=== PATIENT | female | born 1995 | race African-American/Black ===

== ENCOUNTER 2024-01-20 12:18 | Emergency (ER) | payer OTHER ==
[~2024-01-20] VITALS: Ht 170.2 cm; Wt 105.0 kg
[2024-01-20] MEDS: CEPHALEXIN MONOHYDRATE 500 MG CAPSULE PO ONE (13:31)
[2024-01-20] MEDS: PERTUSS(ACELL),DIPH,TET/PF 0.5 ML SYRINGE [ADULT] IM. ONE (13:33)
[2024-01-20] MEDS ORDERED: IBUP-1492 PO (13:49)
[2024-01-20] MEDS ORDERED: CEPH-558 PO (13:49)
[2024-01-20 14:13] VITALS: BP 128/74; PULSE 78; RESP 14; TEMP 98.6
[2024-01-21] MEDS ORDERED: CEPH-558 PO (20:51)
[2024-01-21] MEDS ORDERED: IBUP-1492 PO (20:51)
== END 2024-01-20 14:27 | disposition home or self-care (01) ==
LOC: EMS 12:26 → EDBD 12:26 → EMS 14:27
DX: S01.91XA Laceration without foreign body of unspecified part of head, initial encounter (principal); F12.90 Cannabis use, unspecified, uncomplicated; Z98.890 Other specified postprocedural states; V89.2XXA Person injured in unspecified motor-vehicle accident, traffic, initial encounter; Y93.89 Activity, other specified; Y92.89 Other specified places as the place of occurrence of the external cause; Y99.8 Other external cause status
CPT/HCPCS: 12002; 70450; 90471; 90715; 99285

== ENCOUNTER → 2024-01-26 | Emergency (ER) | payer OTHER ==
[~2024-01-26] VITALS: Ht 167.6 cm; Wt 86.4 kg
[~2024-01-26] MED LIST: CEPH-558 PO; IBUP-1492 PO
[2024-01-26 17:15] VITALS: BP 132/84; PULSE 98; RESP 18; TEMP 97.9
== END | disposition still patient (30) ==
LOC: EMS 17:11
DX: R51.9 Headache, unspecified (principal); Z53.21 Procedure and treatment not carried out due to patient leaving prior to being seen by health care provider

== ENCOUNTER 2024-02-10 20:15 | Emergency (ER) | payer OTHER ==
[~2024-02-10] VITALS: Ht 170.2 cm; Wt 85.0 kg
[2024-02-10 20:20] VITALS: BP 133/70; PULSE 85; RESP 16; TEMP 98.2
== END 2024-02-10 22:22 | disposition home or self-care (01) ==
LOC: EMS 20:17
DX: S01.01XD Laceration without foreign body of scalp, subsequent encounter (principal); F12.90 Cannabis use, unspecified, uncomplicated; Z48.02 Encounter for removal of sutures; X58.XXXD Exposure to other specified factors, subsequent encounter
CPT/HCPCS: 99281; Z7502

== ENCOUNTER 2024-07-01 01:52 | Emergency (ER) | payer OTHER ==
[~2024-07-01] VITALS: Ht 172.7 cm; Wt 86.4 kg
[2024-07-01 02:00] VITALS: TEMP 98.2
[2024-07-01 02:55] VITALS: PULSE 97; RESP 20; O2SAT 98
[2024-07-01] MEDS: IPRATROPIUM BROMIDE 0.5 MG/2.5 ML NEB SOLUTION NEB ONE (02:55)
[2024-07-01] MEDS: ALBUTEROL SULFATE 2.5 MG/0.5 ML NEB SOLUTION NEB ONE (02:55)
[2024-07-01 03:10] VITALS: PULSE 109; RESP 20; O2SAT 100
[2024-07-01 03:37] LABS: COVID AG,FIA SOURCE NASAL SWAB
[2024-07-01] MEDS ORDERED: CEPH-558 PO (03:42)
[2024-07-01] MEDS ORDERED: ALBU18HF12 IH (03:42)
[2024-07-01 03:43] LABS: SARS-COV2 (COVID) ANTIGEN,FIA Negative (Negative)
[2024-07-01 03:44] LABS: INFLUENZA TYPE A NEGATIVE FOR TYPE A (NEGATIVE); INFLUENZA TYPE B NEGATIVE FOR TYPE B (NEGATIVE)
[2024-07-01 04:09] VITALS: BP 133/86; PULSE 95; RESP 18; O2SAT 99
== END 2024-07-01 04:23 | disposition home or self-care (01) ==
LOC: EMS 01:52
DX: L03.90 Cellulitis, unspecified (principal); J45.909 Unspecified asthma, uncomplicated; F12.90 Cannabis use, unspecified, uncomplicated; Z98.890 Other specified postprocedural states; Z20.822 Contact with and (suspected) exposure to COVID-19
CPT/HCPCS: 71045; 87804; 94640; 99284; J7613

== ENCOUNTER 2025-03-18 11:23 | Emergency (ER) | payer MEDICAID, OTHER ==
[~2025-03-18] VITALS: Ht 165.1 cm; Wt 86.4 kg
[~2025-03-18 11:23] MED LIST changes: +ALBU18HF12 IH
[2025-03-18 11:26] VITALS: PULSE 80
[2025-03-18] MEDS ORDERED: IBUP-1492 PO (13:26)
[2025-03-18 13:33] VITALS: BP 130/95; RESP 18; TEMP 98.2; O2SAT 99
== END 2025-03-18 14:24 | disposition home or self-care (01) ==
LOC: EMS 12:09
DX: M54.2 Cervicalgia (principal); F12.90 Cannabis use, unspecified, uncomplicated; Z98.890 Other specified postprocedural states; W22.09XA Striking against other stationary object, initial encounter; Y93.89 Activity, other specified; Y92.89 Other specified places as the place of occurrence of the external cause; Y99.8 Other external cause status
CPT/HCPCS: 72125; 99284; Z7502

== ENCOUNTER 2025-05-13 10:45 | Emergency (ER) | payer MEDICAID ==
[~2025-05-13] VITALS: Ht 172.7 cm; Wt 91.0 kg
[~2025-05-13 10:45] MED LIST changes: -CEPH-558 PO
[2025-05-13 10:51] VITALS: BP 111/76; PULSE 79; RESP 16; TEMP 98; O2SAT 98
[2025-05-13] MEDS ORDERED: CEPH-558 PO (13:10)
[2025-05-13] MEDS ORDERED: SULF-261 PO (13:10)
[2025-05-13] MEDS: SULFAMETHOX/TRIMETH DS 800-160 MG/TABLET PO ONE (13:30)
[2025-05-13] MEDS: CEPHALEXIN MONOHYDRATE 500 MG CAPSULE PO ONE (13:30)
== END 2025-05-13 13:51 | disposition home or self-care (01) ==
LOC: EMS 10:45
DX: L03.112 Cellulitis of left axilla (principal); F12.90 Cannabis use, unspecified, uncomplicated
CPT/HCPCS: 99284; Z7502; Z7610

== ENCOUNTER 2025-05-16 17:40 | Emergency (ER) | payer MEDICAID ==
[~2025-05-16] VITALS: Ht 175.3 cm; Wt 90.9 kg
[~2025-05-16 17:40] MED LIST changes: -ALBU18HF12 IH; +CEPH-558 PO; -IBUP-1492 PO; +SULF-261 PO
[2025-05-16 17:48] VITALS: BP 129/63; PULSE 83; RESP 18; TEMP 97.9; O2SAT 100
== END 2025-05-16 17:55 | disposition left against medical advice (07) ==
LOC: EMS 17:40
DX: Z76.0 Encounter for issue of repeat prescription (principal); Z53.21 Procedure and treatment not carried out due to patient leaving prior to being seen by health care provider
CPT/HCPCS: 99281; Z7502

== ENCOUNTER 2025-06-03 11:48 | Emergency (ER) | payer MEDICAID ==
[~2025-06-03] VITALS: Ht 172.7 cm; Wt 96.4 kg
[~2025-06-03 11:48] MED LIST changes: -SULF-261 PO; +SULF1TAB94 PO
[2025-06-03 11:56] VITALS: TEMP 98.6
[2025-06-03 12:25] LABS: PLATELET COUNT (AUTO) 328 K/uL (150-450); RED BLOOD CELL COUNT(AUTO) 4.24 MIL/uL (4.00-5.20); RED CELL DISTRIBUTION WIDTH 15.8 % (11.5-14.5); WHITE BLOOD COUNT (AUTO) 4.3 K/uL (4.5-11.0)
[2025-06-03 12:33] LABS: CALCIUM, TOTAL 8.6 mg/dL (8.8-10.5); CREATININE 0.72 mg/dL (0.60-1.30); GLOMERULAR FILTR. RATE CALC > 60 mL/min (>60); GLUCOSE,RANDOM 91 mg/dL (70-110); SODIUM SERUM 136 mmol/L (136-145); UREA NITROGEN, BLOOD 10 mg/dL (7-18)
[2025-06-03] MEDS ORDERED: PREN-18 PO (15:43)
[2025-06-03 16:02] VITALS: BP 118/68; PULSE 62; RESP 18; O2SAT 99
== END 2025-06-03 16:02 | disposition home or self-care (01) ==
LOC: EMS 11:50
DX: O26.891 Other specified pregnancy related conditions, first trimester (principal); O99.321 Drug use complicating pregnancy, first trimester; N89.8 Other specified noninflammatory disorders of vagina; F12.90 Cannabis use, unspecified, uncomplicated; Z79.899 Other long term (current) drug therapy; Z3A.01 Less than 8 weeks gestation of pregnancy
CPT/HCPCS: 76801; 80048; 84702; 85025; 99284

== ENCOUNTER 2025-06-06 10:38 | Emergency (ER) | payer MEDICAID, OTHER ==
[~2025-06-06] VITALS: Ht 170.2 cm; Wt 96.4 kg
[~2025-06-06 10:38] MED LIST changes: -CEPH-558 PO; +PREN-18 PO; -SULF1TAB94 PO
[2025-06-06 10:49] VITALS: TEMP 98
[2025-06-06 13:15] VITALS: BP 109/71; PULSE 68; RESP 16; O2SAT 99
== END 2025-06-06 13:31 | disposition home or self-care (01) ==
LOC: EMS 10:43
DX: O26.891 Other specified pregnancy related conditions, first trimester (principal); R89.1 Abnormal level of hormones in specimens from other organs, systems and tissues; F12.90 Cannabis use, unspecified, uncomplicated; N89.8 Other specified noninflammatory disorders of vagina; Z98.890 Other specified postprocedural states; Z79.899 Other long term (current) drug therapy; Z3A.01 Less than 8 weeks gestation of pregnancy
CPT/HCPCS: 84702; 99283